=== PATIENT | female | born 1955 | race American Indian/Alaskan Native ===

== ENCOUNTER 2022-04-28 09:08 | Outpatient (CLI) | payer MEDICARE ==
--- NOTE | 2022-04-29 13:24 | Mammography Report ---
DIGITAL SCREENING MAMMOGRAM WITH CAD, 04/28/2022 CLINICAL INFORMATION / INDICATION: Routine screening mammography. TECHNIQUE: Digital bilateral 2D mammography was obtained in the craniocaudal and mediolateral obliqu e projections. This examination was interpreted with the benefit of Computer-Aided Detection analysis . COMPARISON: 01/30/2017 FINDINGS: Breast Density: The breasts are almost entirely fatty. No dominant mass, suspicious calcifications, or architectural distortion in the right breast. There i s new small grouping of calcifications in the upper outer quadrant of the left breast posterior depth . Calcifications will need further evaluation with magnification views. Bilateral biopsy clips. IMPRESSION: New small grouping of calcifications in the left breast at 2:00 posterior depth. Recommen d magnification views for further evaluation. Follow up recommendation: Special View: Magnification BI-RADS Category 0: INCOMPLETE. Needs additional imaging evaluation and/or prior mammograms for mery kanon. A "normal" or negative report should not discourage follow up or biopsy of a clinically significant f inding. A written summary of these findings will be mailed to the patient. The patient will be entered into a mammography reporting system which will generate a reminder letter for the patient's next appointmen t at the appropriate interval. The [employer] recommends yearly mammograms starting at age 40 and continuing as l ari as a woman is in good health. Breast MRI is recommended for women with an approximate 20-25% or greater lifetime risk of breast cancer, including women with a strong family history of breast or ova carline cancer or who have been treated for Hodgkin's disease. Signer Name: Misti Ashton MD Signed: 04/29/2022 1:19 PM Workstation Name: [id number]
== END 2022-04-28 09:09 | disposition home or self-care (01) ==
LOC: MAMMO 09:08
PROVIDERS: ATTEND Family Medicine
DX: Z12.31 Encounter for screening mammogram for malignant neoplasm of breast (principal)
CPT/HCPCS: 77067

== ENCOUNTER 2022-05-09 07:58 | Outpatient (CLI) | payer MEDICARE ==
--- NOTE | 2022-05-09 09:21 | Mammography Report ---
DIGITAL DIAGNOSTIC MAMMOGRAM WITH CAD CONVENTIONAL, 05/09/2022 CLINICAL INFORMATION / INDICATION: Abnormal screening mammogram TECHNIQUE: Digital left mammographic imaging was performed. Magnification views were obtained. This examination was interpreted with the benefit of Computer-aided Detection analysis. COMPARISON: Screening mammography 04/28/2022, 01/30/2017 FINDINGS: Breast Density: There are scattered areas of fibroglandular density. Prior biopsy changes are in scattered calcifications are again seen. The new grouped microcalcificati ons in the upper outer posterior left breast remain indeterminate on magnification views. IMPRESSION: New grouped microcalcifications are indeterminate. Follow up recommendation: Stereotactic guided biopsy BI-RADS Category 4: SUSPICIOUS FOR MALIGNANCY. A "normal" or negative report should not discourage follow up or biopsy of a clinically significant f inding. A written summary of these findings will be mailed to the patient. The patient will be entered into a mammography reporting system which will generate a reminder letter for the patient's next appointmen t at the appropriate interval. According to the [employer], yearly mammograms are recommended starting at age 40 and continuing as long as a woman is in good health. Breast MRI is recommended for women with an monty roximately 20-25% or greater lifetime risk of breast cancer, including women with a strong family his tory of breast or ovarian cancer and women who have been treated for Hodgkin's disease. Signer Name: David Velazquez MD Signed: 05/09/2022 9:16 AM Workstation Name: [id number]
== END 2022-05-09 07:59 | disposition home or self-care (01) ==
LOC: MAMMO 07:58
PROVIDERS: ATTEND Family Medicine
DX: R92.1 Mammographic calcification found on diagnostic imaging of breast (principal)